=== PATIENT | female | born 1975 | race Caucasian/White ===

== ENCOUNTER 2023-05-30 05:04 | Day surgery (SDC) | payer OTHER ==
[2023-05-29 10:04] VITALS: BMI 26.6
[2023-05-30 10:47] VITALS: TEMP 97.8
[2023-05-30 11:07] VITALS: PULSE 60; RESP 12
[2023-05-30 11:09] VITALS: BP 98/65
== END 2023-05-30 11:38 | disposition home or self-care (01) ==
LOC: JASU-ENDO 05:04
PROVIDERS: ATTEND Internal Medicine Gastroenterology
PROC: 0DB78ZX Excision of Stomach, Pylorus, Via Natural or Artificial Opening Endoscopic, Diagnostic (ICD-10-PCS; 2023-05-30)
PROC: 0DB68ZX Excision of Stomach, Via Natural or Artificial Opening Endoscopic, Diagnostic (ICD-10-PCS; 2023-05-30)
PROC: 0DB98ZX Excision of Duodenum, Via Natural or Artificial Opening Endoscopic, Diagnostic (ICD-10-PCS; principal; 2023-05-30 09:30)
DX: K29.50 Unspecified chronic gastritis without bleeding (principal)
CPT/HCPCS: 88305-TC; 88342-TC